=== PATIENT | female | born 1990 | race Caucasian/White ===

== ENCOUNTER → 2019-04-15 | Outpatient (CLI) | payer BC ==
[~2019-04-15] MED LIST: IBU800 M1 PO; MICROGESTIN 1/21 TAB PO; PRENATAL MVI
--- NOTE | 2019-04-15 12:59 | NUR ---
Pt, Danitza Belcher, presents to walk-in clinic with 9 day old baby girl, Edmond Belcher, for a evaluation and to try to nurse without nipple shield. Edmond was born on [birth year] by vacuum assist vaginal delivery. Her weight was 6#14.9oz (3145 gms). She has nursed from the start with a nipple shield. Today Edmond weighs 7#2.9oz (3258 gms). Pt reports her weight at the doctor appointment last week was 6#13oz. LC assists pt trying to latch without nipple shield, able to latch on right side with assistance. Unable to get baby latched without shield on left side. Wt. gain without the shield on the right side was 24gms. With the shield on the left side, 22gms, and back to the right with the shield 20gms for a total gain of 66gms (2.3oz). POC: continue every 2-3 hours, offer breast without shield for a short time; if no latch use shield and try removing shield part way through the feeding and re-latching baby. If unable to relatch, use shield. Expect infant to be able to nurse without shield in a reasonable amount of time. F/U: anticipate at clinic next week. Questions invited and answered.
== END ==
LOC: OLC 10:34
DX: Z39.1 Encounter for care and examination of lactating mother (principal); Z71.89 Other specified counseling

== ENCOUNTER → 2019-04-22 | Outpatient (CLI) | payer BC ==
--- NOTE | 2019-04-22 10:29 | NUR ---
Danitza Simi into walk in clinic with 2 week old Edmond for evaluation. Edmond weighed 6# 14.9 oz at on 04/06/19 and weighed 7 # 2.2 oz (3258 grams) in clinic last week. Danitza reports Edmond to be nursing approx 7 times per day and diapers to be WNL; however, she states she feels Edmond has be acting as though she is having a hard time passing bowel movements and gas in the last few days. Danitza has been working on weaning Edmond from the breast shield by begining feeds with the shield, then removing it and attempting to relatch without shield use. If Edmond is not suckling well then she put shield back on. Today's prefeed weight was noted at 7# 10.4 oz, an increase of approx 7.5 oz since the previous week. While in clinic, Edmond nursed bilaterally with a total gain of 2.9 oz (82 grams); however, she was not able to nurse well with out the use of the shield. POC: Continue to feed ad max, attempt to feed without use of shield. Anticipate return to clinic to work on shield weaning.
== END ==
LOC: LAC 10:04
DX: Z39.1 Encounter for care and examination of lactating mother (principal); Z71.89 Other specified counseling

== ENCOUNTER → 2019-04-29 | Outpatient (CLI) | payer BC ==
--- NOTE | 2019-04-29 12:28 | NUR ---
Pt, Danitza Belcher, presents to walk-in clinic with 3+ week old baby girl, Edmond, for a evaluation and attempt to wean from shield. Edmond was born on [birth year] and weighed 6#14.9oz. Last week she weighed 7#10.4oz. Today she weighs 8#6oz, so weight gain is excellent even with use of nipple shield. After Edmond had a weight gain of 3oz. LC assists with trying to latch without shield, without success. LC notes that baby has a small indentation on tip of tongue, but no visible sublingual frenulum. LC advises pt to watch for tongue mobility and extension. With gloved finger, baby has loose and inconsistent suck but was also not very receptive to suck evaluation. POC: Continue ad max. Try to nurse without nipple shield, monitor tongue movement. F/U: Anticipate follow up at clinic.
== END ==
LOC: OLC 10:03
DX: Z39.1 Encounter for care and examination of lactating mother (principal); Z71.89 Other specified counseling

== ENCOUNTER → 2019-05-13 | Outpatient (CLI) | payer BC ==
--- NOTE | 2019-05-13 10:38 | NUR ---
Pt, Danitza Belcher, presents to walk in clinic with 5 week old baby girl, Edmond Belcher, for a evaluation. They continue to work on weaning from the nipple shield. They attend clinic on a regular basis. Edmond was born on [birth year] and weighed 6#14.9oz. She has had appropriate weight gain at clinics, today weighing 9#7oz. Pt reports at Edmond's one month appointment five days ago her weight was 9#3oz, but over the last two weeks at clinic she has had a weight gain of 17oz. Pt reports Edmond will nurse without the nipple shield at some feedings, sometimes she has to start the feeding with the shield, and sometimes she has to use the shield throughout the feeding. At this feeding she nursed the left breast without the sheild and transferred 1.7oz rapidly, within 8 minutes. She struggled on the right breast and eventually nursed with the shield. Total intake after bilateral feeding was 2.9oz (82 gms), which is consistent with what she has been feeding and the bottle fed amounts she took recently as mom introduced bottle feeding to prepare for return to work. Discussed pumping prior to latching if breast is over-full to help latching, and pumping suggestions to start collecting milk for returning to work. POC: Continue ad max, continue working to wean from shield. F/U: Clinic as desired. Questions invited and answered.
== END ==
LOC: LAC 10:02
DX: Z39.1 Encounter for care and examination of lactating mother (principal); Z71.89 Other specified counseling

== ENCOUNTER → 2019-05-20 | Outpatient (CLI) | payer BC ==
--- NOTE | 2019-05-20 13:44 | NUR ---
Pt, Danitza Belcher presents to walk-in clinic with 6 week old baby girl, Edmond Belcher for a evaluation. They continue to work on weaning from the nipple shield. They have attended clinic on a regular basis. Edmond was born on [birth year] and weighed 6#14.9oz. Last week she weighed 9#7oz. Today her weight is 9#14.4oz. Danitza reports they are making progress nursing without the shield, especially on the left side but Edmond continues to fuss until the shield is placed on the right side. She states pre-pumping has helped to soften the breast and lengthen the nipple just prior to latching. She also states other suggestions such as increased [id number] have helped. After nursing without the shield on the left breast Edmond has a weight gain of 2.6oz. She takes several minutes to latch onto the left breast and pt resorts to nipple shield. Total post feed weight gain is 4.7oz. POC: Continue with suggestions to wean from shield. Try side-lying position. F/U: Clinic as desired, questions invited and answered.
== END ==
LOC: OLC 10:20
DX: Z39.1 Encounter for care and examination of lactating mother (principal); Z71.89 Other specified counseling

== ENCOUNTER 2021-02-21 15:46 | Inpatient (IN) | payer BC ==
[2021-02-21] VITALS (27 sets, daily range): BP systolic 88–124; BP diastolic 55–74; PULSE 63–104; TEMP 97.7–98.5
[~2021-02-21] VITALS: Ht 165.1 cm; Wt 75.9 kg
--- NOTE | 2021-02-21 15:50 | NUR ---
Patient arrives ambulatory with spouse with complaints of contractions every 3-5 minutes since 1345 today. patient denies ROM or vaginal bleeding. Reports normal movement. Changes into gown, EFM explained and placed. VS obtained. 1600- SVE /-1. Patient repositioned Wl and updated on plan of care. Assessment completed. See physician notification. Patient updated on plan of care.
[2021-02-21 17:53] LABS: BASO % 0.1 % (0.0-2.0); EOS # 0.1 (0.0-0.7); EOS % 0.4 % (0-4.0); GRAN # 9.8 (1.4-6.5); GRAN % 74.3 % (42.2-75.2); HEMOGLOBIN 12.7 g/dl (12.5-16.0); LYMPH # 2.3 (1.2-3.4); LYMPH % 17.2 % (20.0-51.0); MEAN CELL VOLUME 91 fl (80.0-100.0); MEAN CORPUSCULAR HEMOGLOBIN 32 pg (27.0-31.0); MEAN CORPUSCULAR HGB CONC 36 g/dl (33.0-37.0); MEAN PLATELET VOLUME 9.4 fl (7.4-10.4); MONO # 0.9 (0.1-0.6); PLATELET COUNT 186 K/mm3 (130-400); RED BLOOD COUNT 3.92 M/mm3 (4.10-5.30); REDCELL DISTRIBUTION WIDTH-CV 11.9 % (11.5-14.5)
[2021-02-21 18:05] LABS: HEMATOCRIT 35.7 % (37.0-47.0)
--- NOTE | 2021-02-21 19:00 | NUR ---
184- LAI BOWSER IN ROOM FOR EPIDURAL PLACEMENT. PT SITTING UP AT BEDSIDE. 1851- SINGE SHOT GIVEN BY Rachel GARNER CRNA. PT TOLERATED WELL. 1853- TEST DOSE GIVEN BY Rachel GARNER CRNA. PT TOLERATED WELL. 1857- PT REPOSTIONED INTO HIGH FOWLERS FOLLOWING EPIDURAL PLACMENT.
--- NOTE | 2021-02-21 20:06 | NUR ---
1959- PT VOMITING 2002- 4MG IV ZOFRAN GIVEN. 2004- DR. CESAR IN ROOM TO EVALUATE PT 2006- AROM BY DR. RAMÍREZ, CLEAR FLUID NOTED. SVE UNCHANGED FROM PREVIOUS EXAM.
--- NOTE | 2021-02-21 21:40 | NUR ---
3RD DOSE OF 10MG IV EPHEDRINE GIVEN FOR BP OF 102/53 AND PT'S CONTINUED NAUSEA/VOMITING. BP IMPROVED TO 119/70 APPROXIMATELY 2 MINUTES FOLLOWING EPHEDRINE ADMINISTRATION.
--- NOTE | 2021-02-21 21:40 | NUR ---
2109- PT STATES SHE IS FEELING NAUSEATED AND LIGHTHEADED. BP DOWN TO 88/67. FHT'S AT 110 WITH MODERATE VARIABILITY. 2112- EPHEDRINE 10MG GIVEN IV. 2114- BP UP TO 122/68. 2116- IVF BOLUS STARTED. 2118- LATE DECELS AND VARIABLE NOTED WITH LAST CONTRACTION. PT TURNED TO LEFT LATERAL. 2119- FHT'S TRACING AT 100 2121- FHT'S CONTINUE AT 100, BP DOWN TO 103/53, PT CONTINUES TO FEEL NAUSEATED AND LIGHTHEADED. 2ND DOSE OF EPHEDRINE 10MG GIVEN IV. 2122- REPOSITIONED TO RIGHT LATERAL.FHT'S CONTINUE AT 100 2124- BP UP TO 112/74, O2 IN PLACE VIA NON REBREATHER AT 10ML. REPOSITIONED INTO SEMIFOWLERS. FHT'S UP TO 110 WITH MODERATE VARIABILITY. 2127- SVE OF 8/90/-2. PT VOMITS. 2128- DR. CESAR NOTIFIED OF DROP IN BP, DROP IN BASELINE OF FHT'S, AND ATTEMPTED INTERVENTIONS, AND SVE. WILL REVIEW STRIP FROM HOME AND CALL BACK WITH ORDERS. 2136- DR. CESAR CALLS BACK AFTER REVIEWING THE STRIP FROM HOME. OK WITH CURRENT TRACING, NO NEW ORDERS. CALL DR. SERRANO WITH FURTHER QUESTIONS AND WHEN READY FOR DELIVERY. DR. CESAR TO CALL DR. SERRANO TO REPORT OFF.
--- NOTE | 2021-02-21 23:25 | NUR ---
2220- PT COMPLAINS OF SHARP PAIN WITH CONTRACTIONS TO HER LOWER RIGHT SIDE. PT REPOSTIONED INTO RIGHT LATERAL AND SHE PUSHED EPIDURAL BUTTON. 2235- PT CONTINUES TO HAVE SHARP PAIN WITH CONTRACTIONS, WILL NOTIFIED Rachel GARNER CRNA TO COME EVALUATE EPIDURAL. 2244- Belia. PATSY IN ROOM TO ADJUST AND DOSE EPIDURAL. 2255- PT STATES THAT SHE IS FEELING THE URGE TO PUSH, SVE OF COMPLETE/0. 2258- DR. SERRANO CALLED FOR DELIVERY. 2305- CORNELIUS DC'D, 600MLS OUT. 2309- PT BEGINS PUSHING WITH THIS NURSE. 2314- DR. SERRANO IN ROOM FOR DELIVERY. 2321- SPONTANEOUS VAGINAL DELIVERY OF VIABLE BABY BOY, NUCHAL CORD X1. BABY TO MOTHER'S CHEST, CORD CLAMPED BY DR. SERRANO AND CUT BY FOB. BABY CARES ASSUMED BY ROGE ROLLINS. 2325- SPONTANEOUS DELIVERY OF INTACT PLACENTA OVER BILATERAL LABIAL LACERATIONS AND SUPERFICIAL PERINEAL LACERATION. PITOCIN STARTED AT 333ML/HR PER PROTOCOL. RECOVERY STARTED.
[2021-02-22] VITALS (9 sets, daily range): BP systolic 95–120; BP diastolic 54–73; PULSE 71–101; TEMP 98.4–98.5
--- NOTE | 2021-02-22 10:05 | NUR ---
Initial visit; Parents thanked [employer] Drawer [employer] for offering congratulations and God's blessings for the of their son. [employer] Drawer Hand thanked family for choosing [facility].
[2021-02-23 07:43] VITALS: BP 110/78; PULSE 76; TEMP 98.1
[2021-02-23] MEDS ORDERED: IBU800 M1 PO (08:44)
== END 2021-02-23 12:00 | disposition home or self-care (01) | DRG 807 ==
LOC: LDRO 15:46 → LDR 15:50 → OB 02-22 04:00
PROVIDERS: ADMIT Obstetrics & Gynecology
PROC: 10E0XZZ Delivery of Products of Conception, External Approach (ICD-10-PCS; principal; 2021-02-21)
PROC: 0UQMXZZ Repair Vulva, External Approach (ICD-10-PCS; 2021-02-21)
PROC: 10907ZC Drainage of Amniotic Fluid, Therapeutic from Products of Conception, Via Natural or Artificial Opening (ICD-10-PCS; 2021-02-21)
DX: O69.81X0 Labor and delivery complicated by cord around neck, without compression, not applicable or unspecified (principal); Z37.0 Single live birth; Z3A.39 39 weeks gestation of pregnancy; O70.0 First degree perineal laceration during delivery
CPT/HCPCS: J2405; J2590; J2791; J7120

== ENCOUNTER 2024-04-27 10:21 | Emergency (ER) | payer SELFPAY ==
[~2024-04-27] VITALS: Ht 165.1 cm; Wt 61.4 kg
[2024-04-27 10:33] VITALS: BP 116/74; TEMP 98.1
[2024-04-27 12:04] VITALS: PULSE 81
== END 2024-04-27 12:04 | disposition home or self-care (01) ==
LOC: COL.ER 10:21
DX: S62.304A Unspecified fracture of fourth metacarpal bone, right hand, initial encounter for closed fracture (principal); S62.306A Unspecified fracture of fifth metacarpal bone, right hand, initial encounter for closed fracture; W01.0XXA Fall on same level from slipping, tripping and stumbling without subsequent striking against object, initial encounter